=== PATIENT | female | born 1970 | race Caucasian/White ===

== ENCOUNTER 2017-03-19 06:17 | Inpatient (IN) | payer SELFPAY ==
[~2017-03-19] VITALS: Ht 160 cm; Wt 61.2 kg
[~2017-03-19 06:17] MED LIST: ESTR0.3T3 PO
[2017-03-19] MEDS ORDERED: SODIUM CHLORIDE 0.9% 1,000 ML IV ONE ×2 (06:55→10:45)
[2017-03-19] MEDS ORDERED: MORPHINE SULFATE 4 MG/ML CPJ (NOT FOR IM USE) IV STA ×2 (06:55→10:45)
[2017-03-19] MEDS ORDERED: ONDANSETRON HCL 4MG/2ML VIAL IV STA ×2 (06:55→10:45)
[2017-03-19 07:22] LABS: CLARITY URINE CLEAR (CLEAR); COLOR URINE YELLOW (YELLOW); GLUCOSE URINE NEGATIVE (NEGATIVE); KETONES URINE NEGATIVE (NEGATIVE); LEUKOCYTE ESTERASE URINE TRACE (NEGATIVE); NITRITE URINE NEGATIVE (NEGATIVE); OCCULT BLOOD URINE TRACE (NEGATIVE); PH URINE 5.5 (4.5-8.0); PROTEIN URINE NEGATIVE (NEGATIVE); SPECIFIC GRAVITY URINE 1.018 (1.005-1.030); UROBILINOGEN URINE 0.2 E.U./dL (0.2-1.0)
[2017-03-19 07:28] LABS: BASOPHILS % 0.6 % (0.0-2.0); EOSINOPHILS % 1.6 % (0.0-5.0); HEMATOCRIT. 42.8 % (36.0-48.0); HEMOGLOBIN. 14.3 g/dL (12.0-16.0); LYMPHOCYTES % 20.4 % (20.0-50.0); MEAN CORPUSCULAR HEMOGLOBIN 29.9 pg (28.0-32.0); MEAN CORPUSCULAR HGB CONC 33.3 g/dL (31.0-37.0); MEAN CORPUSCULAR VOLUME 89.8 fL (81.0-99.0); MEAN PLATELET VOLUME 8.2 fl (7.4-10.4); MONOCYTES % 6.1 % (2.0-8.0); NEUTROPHILS % 71.3 % (40.0-76.0); PLATELET 276 x1000/uL (130-400); RED BLOOD CELL COUNT 4.77 mill/uL (4.2-5.4); RED CELL DISTRIBUTION WIDTH 12.9 % (11.6-14.6); WHITE BLOOD COUNT 9.7 x1000/uL (4.5-11.0)
[2017-03-19 07:39] LABS: ALANINE AMINOTRANSFERASE 40 IU/L (13-61); ALBUMIN 4.1 g/dL (3.4-5.0); ANION GAP 15; CALCIUM 9.1 mg/dL (8.5-10.1); CARBON DIOXIDE 24 mEq/L (21-32); CHLORIDE 104 mEq/L (98-107); INDEX HEMOLYSI 1 (1-3); INDEX ICTERIC 1 (1-4); INDEX LIPEMIC 1 (1-3); LIPASE 76 IU/L (73-393); UREA NITROGEN BLOOD 15 mg/dL (7-21)
[2017-03-19 07:41] LABS: HCG SCREEN NEGATIVE
[2017-03-19 07:44] LABS: TROPONIN I < 0.02 ng/mL (0.00-0.04); eGFR > 60 mL/min (>60)
[2017-03-19 07:45] LABS: BACTERIA URINE TRACE; RBC URINE 0-2 /hpf (0-2); WBC URINE 0-2 /hpf (0-2)
[2017-03-19 07:46] LABS: SQUAMOUS EPITHELIAL CELL URINE RARE /lpf (RARE/1+)
[2017-03-19 08:03] LABS: PROTHROMBIN TIME 10.6 sec
[2017-03-19] MEDS ORDERED: LIDOCAINE HCL 2% JELLY 5ML TOP ONE (10:45)
[2017-03-19 12:00] VITALS: BP 121/73
[2017-03-19 12:40] VITALS: BP 121/73
[2017-03-19] MEDS ORDERED: SODIUM CHLORIDE 0.9% 10ML VIAL ONE (14:28)
[2017-03-19] MEDS ORDERED: IOHEXOL-300 100 ML BOTTLE ONE (14:28)
[2017-03-19] MEDS ORDERED: ACETAMINOPHEN 650MG SUPP PR PRN (15:15)
[2017-03-19] MEDS: DEXT 5%/0.45% NACL 1000ML 1,000 ML IV SCH (15:40)
[2017-03-19] MEDS: HYDROMORPHONE HCL/PF 2MG/ML CPJ IV PRN (15:49)
[2017-03-19] MEDS: ONDANSETRON HCL 4MG/2ML VIAL IV PRN (15:50)
[2017-03-19 16:00] VITALS: BP 110/66
[2017-03-19 20:00] VITALS: BP 104/65
[2017-03-20] VITALS: BP 103/71
[2017-03-20] MEDS: HYDROMORPHONE HCL/PF 2MG/ML CPJ IV PRN (02:06)
[2017-03-20] MEDS: ONDANSETRON HCL 4MG/2ML VIAL IV PRN ×2 (02:23→09:04)
[2017-03-20 04:00] VITALS: BP 96/56
[2017-03-20 06:08] LABS: BASOPHILS % 0.2 % (0.0-2.0); EOSINOPHILS % 0.9 % (0.0-5.0); HEMATOCRIT. 38.6 % (36.0-48.0); HEMOGLOBIN. 12.8 g/dL (12.0-16.0); LYMPHOCYTES % 21.2 % (20.0-50.0); MEAN CORPUSCULAR HEMOGLOBIN 30.3 pg (28.0-32.0); MEAN CORPUSCULAR HGB CONC 33.3 g/dL (31.0-37.0); MEAN CORPUSCULAR VOLUME 90.8 fL (81.0-99.0); MEAN PLATELET VOLUME 8.1 fl (7.4-10.4); MONOCYTES % 7.5 % (2.0-8.0); NEUTROPHILS % 70.2 % (40.0-76.0); PLATELET 244 x1000/uL (130-400); RED BLOOD CELL COUNT 4.24 mill/uL (4.2-5.4); RED CELL DISTRIBUTION WIDTH 12.7 % (11.6-14.6); WHITE BLOOD COUNT 7.5 x1000/uL (4.5-11.0)
[2017-03-20 07:59] LABS: ALANINE AMINOTRANSFERASE 147 IU/L (13-61); ALBUMIN 3.3 g/dL (3.4-5.0); ANION GAP 12; CALCIUM 8.4 mg/dL (8.5-10.1); CARBON DIOXIDE 27 mEq/L (21-32); CHLORIDE 104 mEq/L (98-107); INDEX HEMOLYSI 1 (1-3); INDEX ICTERIC 1 (1-4); INDEX LIPEMIC 1 (1-3); UREA NITROGEN BLOOD 14 mg/dL (7-21); eGFR > 60 mL/min (>60)
[2017-03-20 08:00] VITALS: BP 124/74
[2017-03-20] MEDS: DEXT 5%/0.45% NACL 1000ML 1,000 ML IV SCH (09:08)
[2017-03-20 12:00] VITALS: BP 130/80
[2017-03-20] MEDS ORDERED: BISACODYL 10MG SUPP PR SCH (12:15)
[2017-03-20] MEDS ORDERED: LACTULOSE 20G/30ML UDC PO SCH (12:15)
[2017-03-20] MEDS ORDERED: NA PHOS,M-B/NA PHOS,DI-BA ENEMA 118ML PR SCH (12:15)
[2017-03-20] MEDS ORDERED: HYDROCORTISONE 1% RECTAL CREAM 30GM PR PRN (14:15)
[2017-03-20 16:00] VITALS: BP 100/69
[2017-03-20 20:00] VITALS: BP 112/59
[2017-03-21] VITALS: BP 105/73
[2017-03-21] MEDS: DEXT 5%/0.45% NACL 1000ML 1,000 ML IV SCH ×2 (03:00→07:35)
[2017-03-21 04:00] VITALS: BP 111/65
[2017-03-21 08:00] VITALS: BP 87/57
== END 2017-03-21 13:30 | disposition home or self-care (01) | DRG 247 ==
LOC: ER 07:20 → 6EST 09:48
PROVIDERS: ADMIT Hospitalist; ATTEND Hospitalist
DX: K56.60 Unspecified intestinal obstruction (principal); E86.0 Dehydration; Z90.49 Acquired absence of other specified parts of digestive tract
CPT/HCPCS: 36415; 71010; 74000; 74177; 80053; 81001; 81025; 83690; 84484; 84703; 85025; 85610; 93005; 93970; 96361; 96374; 96375; 96376; 99285; A4216; J1170; J2270; J2405; J3490; J7030; Q9967

== ENCOUNTER 2017-08-13 13:46 | Emergency (ER) | payer MEDICAID ==
[~2017-08-13] VITALS: Ht 162.6 cm; Wt 55.0 kg
[2017-08-13] MEDS ORDERED: SODIUM CHLORIDE 0.9% 1,000 ML IV ONE (15:30)
[2017-08-13 15:33] LABS: BASOPHILS % 0.3 % (0.0-2.0); EOSINOPHILS % 1.9 % (0.0-5.0); HEMATOCRIT. 42.9 % (36.0-48.0); HEMOGLOBIN. 14.4 g/dL (12.0-16.0); LYMPHOCYTES % 9.6 % (20.0-50.0); MEAN CORPUSCULAR HEMOGLOBIN 30.5 pg (28.0-32.0); MEAN CORPUSCULAR VOLUME 90.9 fL (81.0-99.0); NEUTROPHILS % 83.2 % (40.0-76.0); PLATELET 286 x1000/uL (130-400); RED BLOOD CELL COUNT 4.72 mill/uL (4.2-5.4); RED CELL DISTRIBUTION WIDTH 13.3 % (11.6-14.6)
[2017-08-13 15:43] LABS: CARBON DIOXIDE 29 mEq/L (21-32); CHLORIDE 105 mEq/L (98-107)
[2017-08-13 15:47] LABS: TROPONIN I < 0.02 ng/mL (0.00-0.04)
[2017-08-13 16:25] VITALS: BP 114/82
== END 2017-08-13 16:27 | disposition home or self-care (01) ==
LOC: ER 14:43
DX: R55 Syncope and collapse (principal); E86.0 Dehydration; D72.829 Elevated white blood cell count, unspecified; Z90.710 Acquired absence of both cervix and uterus; Z90.49 Acquired absence of other specified parts of digestive tract
CPT/HCPCS: 36415; 80053; 84484; 85025; 93005; 99285; J7030

== ENCOUNTER 2017-11-20 19:18 | Emergency (ER) | payer MEDICAID ==
[~2017-11-20] VITALS: Ht 162.6 cm; Wt 59.0 kg
[2017-11-20 22:00] VITALS: BP 108/59
[2017-11-20] MEDS ORDERED: KETOROLAC 60MG/2ML VIAL IM ONE (22:00)
== END 2017-11-20 23:16 | disposition home or self-care (01) ==
LOC: ER 19:23
DX: S20.212A Contusion of left front wall of thorax, initial encounter (principal); W01.0XXA Fall on same level from slipping, tripping and stumbling without subsequent striking against object, initial encounter; Y93.89 Activity, other specified; Y92.89 Other specified places as the place of occurrence of the external cause
CPT/HCPCS: 71101; 81025; 96372; 99284; J1885; Z7610

== ENCOUNTER 2018-01-18 12:38 | Emergency (ER) | payer MEDICAID ==
[~2018-01-18] VITALS: Ht 162.6 cm; Wt 62.0 kg
[2018-01-18] MEDS ORDERED: ONDANSETRON HCL 4MG/2ML VIAL IV ONE (15:30)
[2018-01-18] MEDS ORDERED: KETOROLAC 30MG/ML VIAL IV ONE (15:30)
[2018-01-18 15:52] LABS: CLARITY URINE CLEAR (CLEAR); COLOR URINE YELLOW (YELLOW); KETONES URINE 1+ (NEGATIVE); LEUKOCYTE ESTERASE URINE NEGATIVE (NEGATIVE); NITRITE URINE NEGATIVE (NEGATIVE); OCCULT BLOOD URINE NEGATIVE (NEGATIVE); PH URINE 5.5 (4.5-8.0); PROTEIN URINE NEGATIVE (NEGATIVE); SPECIFIC GRAVITY URINE 1.014 (1.005-1.030)
[2018-01-18 16:06] LABS: BASOPHILS % 0.6 % (0.0-2.0); EOSINOPHILS % 1.2 % (0.0-5.0); HEMATOCRIT. 38.3 % (36.0-48.0); LYMPHOCYTES % 35.4 % (20.0-50.0); MEAN CORPUSCULAR HEMOGLOBIN 30.4 pg (28.0-32.0); MEAN CORPUSCULAR VOLUME 89.4 fL (81.0-99.0); MEAN PLATELET VOLUME 8.2 fl (7.4-10.4); MONOCYTES % 6.8 % (2.0-8.0); PLATELET 271 x1000/uL (130-400); PROTHROMBIN TIME 10.2 sec (9.4-11.6); RED BLOOD CELL COUNT 4.29 mill/uL (4.2-5.4); RED CELL DISTRIBUTION WIDTH 12.5 % (11.6-14.6)
[2018-01-18 16:07] LABS: HCG SCREEN NEGATIVE
[2018-01-18 16:09] LABS: CHLORIDE 102 mEq/L (98-107)
[2018-01-18 17:00] VITALS: BP 119/74
== END 2018-01-18 17:24 | disposition home or self-care (01) ==
LOC: ER 13:55
DX: R10.84 Generalized abdominal pain (principal); R11.2 Nausea with vomiting, unspecified; Z90.49 Acquired absence of other specified parts of digestive tract
CPT/HCPCS: 36415; 74176; 80053; 81003; 83690; 84703; 85025; 85610; 96374; 96375; 99285; J1885; J2405; Z7610

== ENCOUNTER 2019-05-08 06:26 | Inpatient (IN) | payer OTHER, MEDICAID ==
[~2019-05-08] VITALS: Ht 162.6 cm; Wt 56.7 kg
[2019-05-08] MEDS ORDERED: ONDANSETRON HCL 4MG/2ML INJ IV STA (07:12)
[2019-05-08] MEDS ORDERED: MORPHINE SULFATE 4 MG/ML CPJ (NOT FOR IM USE) IV STA (07:12)
[2019-05-08 07:42] LABS: CHLORIDE 106 mEq/L (98-107)
[2019-05-08 07:44] LABS: INR 0.9; PROTHROMBIN TIME 9.6 sec (9.6-11.0)
[2019-05-08 07:46] LABS: BASOPHILS % 0.3 % (0.0-2.0); EOSINOPHILS % 0.7 % (0.0-5.0); HEMATOCRIT. 46.3 % (36.0-48.0); HEMOGLOBIN. 15.7 g/dL (12.0-16.0); LYMPHOCYTES % 10.1 % (20.0-50.0); MEAN CORPUSCULAR HEMOGLOBIN 30.8 pg (28.0-32.0); MEAN CORPUSCULAR VOLUME 90.8 fL (81.0-99.0); MEAN PLATELET VOLUME 8.3 fl (7.4-10.4); MONOCYTES % 4.9 % (2.0-8.0); PLATELET 297 x1000/uL (130-400); RED CELL DISTRIBUTION WIDTH 13.3 % (11.6-14.6)
[2019-05-08] MEDS ORDERED: MAGNESIUM/ALUMINUM HYDROXIDE/SIMETHICONE 30ML UDC PO ONE (08:15)
[2019-05-08] MEDS ORDERED: KETOROLAC 30MG/ML VIAL IV ONE (08:30)
[2019-05-08 08:34] LABS: HCG SCREEN NEGATIVE
[2019-05-08 09:43] LABS: CLARITY URINE TURBID (CLEAR); COLOR URINE YELLOW (YELLOW); KETONES URINE NEGATIVE (NEGATIVE); LEUKOCYTE ESTERASE URINE 2+ (NEGATIVE); NITRITE URINE NEGATIVE (NEGATIVE); OCCULT BLOOD URINE NEGATIVE (NEGATIVE); PH URINE 5.5 (4.5-8.0); PROTEIN URINE NEGATIVE (NEGATIVE); SPECIFIC GRAVITY URINE 1.023 (1.005-1.030); UROBILINOGEN URINE 0.2 E.U./dL (0.2-1.0)
[2019-05-08 12:00] VITALS: BP 99/61
[2019-05-08] MEDS ORDERED: MORPHINE SULFATE 2 MG/ML CPJ (NOT FOR IM USE) IV PRN (13:15)
[2019-05-08] MEDS ORDERED: ACETAMINOPHEN 650MG SUPP PR PRN (13:15)
[2019-05-08] MEDS ORDERED: ONDANSETRON HCL 4MG/2ML INJ IV PRN (13:15)
[2019-05-08] MEDS: FAMOTIDINE 20MG/2ML VIAL IV SCH (13:43)
[2019-05-08] MEDS: DEXT 5%/0.45% NACL 1000ML 1,000 ML IV SCH (13:43)
[2019-05-08] MEDS ORDERED: LEVOFLOXACIN 500MG PREMIX 100 ML IV SCH (15:00)
[2019-05-08 16:00] VITALS: BP 106/61
[2019-05-08 20:00] VITALS: BP 103/56
[2019-05-09] VITALS: BP 115/54
[2019-05-09 04:00] VITALS: BP 101/60
[2019-05-09] MEDS: DEXT 5%/0.45% NACL 1000ML 1,000 ML IV SCH (04:41)
[2019-05-09 06:08] LABS: BASOPHILS % 0.4 % (0.0-2.0); EOSINOPHILS % 1.2 % (0.0-5.0); LYMPHOCYTES % 24.5 % (20.0-50.0); MEAN CORPUSCULAR HEMOGLOBIN 31.3 pg (28.0-32.0); MEAN CORPUSCULAR VOLUME 91.1 fL (81.0-99.0); MEAN PLATELET VOLUME 8.3 fl (7.4-10.4); NEUTROPHILS % 65.9 % (40.0-76.0); PLATELET 243 x1000/uL (130-400); RED BLOOD CELL COUNT 4.17 mill/uL (4.2-5.4); RED CELL DISTRIBUTION WIDTH 12.7 % (11.6-14.6)
[2019-05-09 06:33] LABS: CHLORIDE 107 mEq/L (98-107)
[2019-05-09 07:24] VITALS: BP 103/49
[2019-05-09 08:00] VITALS: BP 123/49
[2019-05-09] MEDS: FAMOTIDINE 20MG/2ML VIAL IV SCH (10:17)
[2019-05-09 11:37] VITALS: BP 103/49
== END 2019-05-09 12:00 | disposition home or self-care (01) | DRG 247 ==
LOC: ER 06:26 → 8WST 10:02 → ENRESERV 11:02
PROVIDERS: ADMIT Hospitalist; ATTEND Hospitalist
DX: K56.600 Partial intestinal obstruction, unspecified as to cause (principal); N39.0 Urinary tract infection, site not specified; Z90.49 Acquired absence of other specified parts of digestive tract; Z90.710 Acquired absence of both cervix and uterus; Z68.21 Body mass index [BMI] 21.0-21.9, adult
CPT/HCPCS: 36415; 74018; 74176; 84703; 87077; 93970; 96374; 96375; 99285; J1885; J1956; J2270; J2405; J3490

== ENCOUNTER 2020-07-27 18:33 | Emergency (ER) | payer MEDICAID ==
[~2020-07-27] VITALS: Ht 162.6 cm; Wt 57.0 kg
[2020-07-27] MEDS ORDERED: ACETAMINOPHEN WITH CODEINE 300/30MG TABLET PO NR (19:45)
[2020-07-27] MEDS ORDERED: CALCIUM CARBONATE 500MG TABLET CHEW PO ONE (21:15)
[2020-07-27] MEDS ORDERED: OMEPRAZOLE 20MG CAPSULE EXTENDED RELEASE PO ONE (21:15)
[2020-07-27] MEDS ORDERED: VISCOUS LIDOCAINE 2% 15 ML UDC PO STA (21:16)
[2020-07-27] MEDS ORDERED: MAGNESIUM/ALUMINUM HYDROXIDE/SIMETHICONE 30ML UDC PO STA (21:16)
[2020-07-27 21:53] VITALS: BP 120/60
== END 2020-07-27 22:49 | disposition home or self-care (01) ==
LOC: ER 18:33
DX: S92.911A Unspecified fracture of right toe(s), initial encounter for closed fracture (principal); Z98.890 Other specified postprocedural states; Z90.49 Acquired absence of other specified parts of digestive tract; Z90.710 Acquired absence of both cervix and uterus; W31.9XXA Contact with unspecified machinery, initial encounter; Y93.89 Activity, other specified; Y92.89 Other specified places as the place of occurrence of the external cause; Y99.8 Other external cause status
CPT/HCPCS: 73630; 99284; Z7610

== ENCOUNTER 2023-10-31 20:01 | Emergency (ER) | payer MEDICAID ==
[~2023-10-31] VITALS: Ht 165.1 cm; Wt 59.0 kg
[2023-10-31 20:07] VITALS: O2SAT 98
[2023-10-31 21:40] LABS: GLUCOSE URINE NEGATIVE (NEGATIVE); KETONES URINE NEGATIVE (NEGATIVE)
[2023-10-31] MEDS ORDERED: IBUP-2029 MT (22:11)
[2023-10-31 22:12] LABS: CLARITY URINE CLEAR (CLEAR); COLOR URINE YELLOW (YELLOW); NITRITE URINE NEGATIVE (NEGATIVE); OCCULT BLOOD URINE NEGATIVE (NEGATIVE); PROTEIN URINE NEGATIVE (NEGATIVE); SPECIFIC GRAVITY URINE 1.017 (1.005-1.030)
[2023-10-31 22:13] LABS: LEUKOCYTE ESTERASE URINE NEGATIVE (NEGATIVE); UROBILINOGEN URINE 0.2 E.U./dL (0.2-1.0)
[2023-10-31 22:14] LABS: BACTERIA URINE NONE SEEN; RBC URINE NONE SEEN /hpf (0-2); SQUAMOUS EPITHELIAL CELL URINE 1+ /lpf (RARE/1+); WBC URINE 0-2 /hpf (0-2)
[2023-10-31] MEDS ORDERED: IBUPROFEN 600MG TABLET PO ONE (22:15)
[2023-10-31 22:24] VITALS: BP 114/75; PULSE 78; RESP 20; TEMP 98.6
== END 2023-10-31 22:26 | disposition home or self-care (01) ==
LOC: ER 20:01
DX: R07.89 Other chest pain (principal); Z90.49 Acquired absence of other specified parts of digestive tract; Z98.890 Other specified postprocedural states; V49.9XXA Car occupant (driver) (passenger) injured in unspecified traffic accident, initial encounter; Y93.89 Activity, other specified; Y92.89 Other specified places as the place of occurrence of the external cause; Y99.8 Other external cause status
CPT/HCPCS: 71045; 81003; 81025; 93005; 99285